=== PATIENT | male | born 1940 | race Caucasian/White ===

== ENCOUNTER 2018-11-16 13:03 | Emergency (ER) | payer MEDICARE, BC ==
[~2018-11-16 13:03] MED LIST: Iopamidol 370 76% 100 ML VIAL ONE
[2018-11-16] MEDS ORDERED: Sodium Chloride 0.9% 1,000 ML ONE ×3 (13:39→16:16)
[2018-11-16] MEDS ORDERED: Ondansetron PF 4 MG/2 ML Vial ONE (13:39)
[2018-11-16 14:21] LABS: #Basophils 0.1 thou/uL (0.0-0.2); #Lymphocytes 0.6 thou/uL (1.20-3.40); #Monocytes 1.1 thou/uL (0.11-0.59); #Neutrophils 12.2 thou/uL (1.40-6.50); %Basophils 0.5 % (0.0-1.0); %Lymphocytes 4.1 % (21.0-51.0); %Monocytes 7.8 % (0.0-10.0); %Neutrophils 87.6 % (42.0-75.0); Hemoglobin 15.6 g/dL (14.0-18.0); Mean Corpuscular HGB CONC 32.1 g/dL (32.0-36.0); Mean Corpuscular Hemoglobin 29.2 pg (27.0-31.0); Mean Corpuscular Volume 91.1 fL (78.0-98.0); Mean Platelet Volume 6.6 fL (7.4-10.4); Platelet Count 149 thou/uL (130-400); RBC Distribution Width 12.7 % (11.5-14.5); Red Blood Cell (RBC) Count 5.33 mill/uL (4.70-6.10); White Blood Cell (WBC) Count 13.9 thou/uL (4.8-10.8)
[2018-11-16 14:31] LABS: ALT (SGPT) 64 U/L (8-55); AST (SGOT) 290 U/L (5-34); Alkaline Phosphatase 95 U/L (40-150); Anion Gap 18 mmol/L (10-20); BUN (Urea Nitrogen) 17 mg/dL (8.4-25.7); Calc. Creatinine Clearance 0 mL/min (70-130); Calcium 9.6 mg/dL (7.8-10.44); Carbon Dioxide 21 mmol/L (23-31); Chloride 98 mmol/L (98-107); Estimated GFR-MDRD 71; Globulin 4.2 g/dL (2.4-3.5); Glucose 149 mg/dL (83-110); Protein, Total 8.2 g/dL (5.8-8.1); Sodium 133 mmol/L (136-145)
[2018-11-16 14:32] LABS: Acetaminophen Less than 6.0 mcg/mL (10.0-30.0); Alcohol Less than 10 mg/dL (Less than 10); Salicylate Less than 8.0 mg/dL (15.0-30.0)
[2018-11-16 14:48] LABS: Bilirubin Small (Negative); Blood, Urine Large (Negative); Clarity Clear (Clear); Glucose, Urine (Dipstick) Negative (Negative); Leukocyte Negative (Negative); Nitrite Negative (Negative); Protein, Urine (Dipstick) > or equal to 300 mg/dL (Neg-Trace); Urobilinogen 0.2 mg/dL (0.2-1.0)
--- NOTE | 2018-11-16 15:03 | RAD ---
PORTABLE CHEST: DATE: 11/16/2018. PROVIDED CLINICAL HISTORY: Vomiting. FINDINGS: Comparison 12/04/2006. The cardiac silhouette appears prominent which may be at least partially on th e basis of portable technique. Prominence of the pulmonary vasculature and pulmonary interstitium. Obscuration of the left heart margin and left hemidiaphragm. No evidence for pneumothorax. IMPRESSION: 1. Prominence of the pulmonary vasculature and pulmonary interstitium suggests congestive failure. 2. Obscuration of the left heart margin and left hemidiaphragm suggests pleural and/or parenchymal o pacity at the left lung base. POS: [facility]
[2018-11-16 15:07] LABS: Amphetamine Not Detected (NotDetected); Barbiturates Screen Not Detected (NotDetected); Benzodiazepine Screen Not Detected (NotDetected); Cocaine Metabolite Screen Not Detected (NotDetected); Medtox Control Line Valid? VALID (VALID); Methadone Not Detected (NotDetected); Methamphetamine Not Detected (NotDetected); Opiate Screen Not Detected (NotDetected); Oxycodone Screen Not Detected (NotDetected); Phencyclidine (PCP) Not Detected (NotDetected); THC/Cannabinoid Screen Not Detected (NotDetected); Tricyclic Screen Not Detected (NotDetected)
[2018-11-16 15:08] LABS: Specific Gravity, Urine 1.027 (1.002-1.036)
[2018-11-16 15:10] LABS: Bacteria/HPF Rare-Few HPF (None Seen); Crystals/HPF 1+ AMORPH URATES HPF (Negative); Squamous Epithelial 0-3 HPF (0-3); WBC/HPF 0-3 HPF (0-3)
--- NOTE | 2018-11-16 15:14 | CT ---
Exam: CT abdomen and pelvis with IV contrast HISTORY: Vomiting FINDINGS: There is patchy parenchymal opacity present at the left lung base. There is a mild hiatal hernia. The liver, spleen, pancreas, kidneys and adrenal glands demonstrate an unremarkable CT appearance. There is a right inguinal hernia containing nondilated distal small bowel. There is no evidence for b owel dilatation, inflammatory fat stranding, free fluid or free air. Vascular calcifications are noted involving the abdominal aorta and its branches. The osseous structu res demonstrate degenerative changes without concerning osteoblastic or osteolytic lesion. IMPRESSION: 1. Left lower lobe airspace disease, compatible with pneumonia in the appropriate clinical context. A spiration could also be considered. 2. Small bowel containing right inguinal hernia without evidence for resultant bowel obstruction.
[2018-11-16] MEDS ORDERED: cefTRIAXone\\ROCEPHIN 1 GM VIAL ONE (15:27)
[2018-11-16] MEDS ORDERED: Acetaminophen 500 MG TAB ONE (16:03)
[2018-11-16] MEDS ORDERED: Acetaminophen 325 MG Suppository ONE (16:06)
[2018-11-16] MEDS ORDERED: Acetaminophen 650 MG Suppository ONE (16:06)
== END 2018-11-16 16:40 | disposition short-term general hospital (02) ==
LOC: NAV ERS 13:03
DX: J18.9 Pneumonia, unspecified organism (principal); K40.90 Unilateral inguinal hernia, without obstruction or gangrene, not specified as recurrent; K92.2 Gastrointestinal hemorrhage, unspecified; I25.10 Atherosclerotic heart disease of native coronary artery without angina pectoris; E78.5 Hyperlipidemia, unspecified; I10 Essential (primary) hypertension; Z87.891 Personal history of nicotine dependence
CPT/HCPCS: 36415; 71045; 74177; 80053; 80306; 80307; 81003; 81015; 82271; 82274; 83605; 83880; 84484; 85025; 87040; 87077; 87086; 87149; 87186; 93005; 94760; 96361; 96374; 96375; J0696; J2405; J7050; Q9967

== ENCOUNTER → 2020-05-04 | Emergency (ER) | payer MEDICARE, BC ==
[~2020-05-04] MED LIST changes: +Azithromycin 500 MG VIAL ONE; -Iopamidol 370 76% 100 ML VIAL ONE; +NS 0.9% w/ 20 MEQ KCL 1,000 ML ONE; +Sodium Chloride 0.9% 1,000 ML ONE; +Sodium Chloride 0.9% 100 ML ONE; +Sodium Chloride 0.9% 250 ML 250 ML ONE; +cefTRIAXone\\ROCEPHIN 1 GM VIAL ONE
[2020-05-04 17:37] LABS: #Basophils 0.1 thou/uL (0.0-0.2); #Eosinphils 0.3 thou/uL (0.0-0.7); #Lymphocytes 1.1 thou/uL (1.20-3.40); #Monocytes 1.3 thou/uL (0.11-0.59); #Neutrophils 11.5 thou/uL (1.40-6.50); %Basophils 0.4 % (0.0-1.0); %Lymphocytes 7.9 % (21.0-51.0); %Monocytes 9.4 % (0.0-10.0); %Neutrophils 80.4 % (42.0-75.0); Hemoglobin 13.7 g/dL (14.0-18.0); Mean Corpuscular HGB CONC 31.8 g/dL (32.0-36.0); Mean Corpuscular Volume 94.3 fL (78.0-98.0); Mean Platelet Volume 6.7 fL (7.4-10.4); Platelet Count 177 thou/uL (130-400); RBC Distribution Width 12.4 % (11.5-14.5); Red Blood Cell (RBC) Count 4.58 mill/uL (4.70-6.10); White Blood Cell (WBC) Count 14.3 thou/uL (4.8-10.8)
[2020-05-04 18:01] LABS: ALT (SGPT) 20 U/L (8-55); AST (SGOT) 17 U/L (5-34); Albumin 3.6 g/dL (3.4-4.8); Alkaline Phosphatase 93 U/L (40-110); Anion Gap 13 mmol/L (10-20); BUN (Urea Nitrogen) 11 mg/dL (8.4-25.7); Calc. Creatinine Clearance 0 mL/min (70-130); Calcium 8.8 mg/dL (7.8-10.44); Carbon Dioxide 30 mmol/L (23-31); Chloride 97 mmol/L (98-107); Estimated GFR-MDRD 82; Globulin 3.7 g/dL (2.4-3.5); Glucose 95 mg/dL (83-110); Protein, Total 7.3 g/dL (5.8-8.1); Sodium 137 mmol/L (136-145)
--- NOTE | 2020-05-04 18:06 | RAD ---
RADIOGRAPH CHEST 1 VIEW: DATE: 05/04/2020 TIME: 5:47 PM HISTORY: 80-year-old male with cough and dyspnea COMPARISON: 11/18/2018 FINDINGS: Again demonstrated are infiltrates involving the lateral aspects of the left mid and lower lung zones encroaching upon lateral upper lung zone, and at the right base. Allowing for positional differences, the infiltrates appear similar to that of the prior study. Sternotomy wires are again no radha. Complete silhouetting of left heart shadow. No pneumothorax. Overall similar appearance to prior study. IMPRESSION: Infiltrates involving bilateral lung bases and lateral aspects of left mid and upper lung zones appea r similar to those of the prior study last year. These could either represent chronic infiltrates or recurrent acute infiltrates. The former is slightly favored.
[2020-05-04 18:17] LABS: Potassium 2.9 mmol/L (3.5-5.1)
[2020-05-04 18:22] LABS: Bilirubin Small (Negative); Blood, Urine Trace (Negative); Clarity Clear (Clear); Glucose, Urine (Dipstick) 250 mg/dL (Negative); Ketone, Urine Negative (Negative); Leukocyte Negative (Negative); Nitrite Negative (Negative); Protein, Urine (Dipstick) 30 mg/dL (Neg-Trace); Specific Gravity, Urine 1.025 (1.005-1.030); Urobilinogen > or = 8.0 mg/dL (Less than 2); pH, Urine 6.5 (5.0-9.0)
[2020-05-04 18:26] LABS: Bacteria/HPF None Seen HPF (None Seen); Squamous Epithelial 0-3 HPF (0-3); WBC/HPF 0-3 HPF (0-3)
== END ==
LOC: NAV ERS 16:58
DX: A41.9 Sepsis, unspecified organism (principal); J18.9 Pneumonia, unspecified organism; R65.20 Severe sepsis without septic shock; E87.6 Hypokalemia; D72.829 Elevated white blood cell count, unspecified; M79.89 Other specified soft tissue disorders; I10 Essential (primary) hypertension; E78.5 Hyperlipidemia, unspecified; Z87.891 Personal history of nicotine dependence
CPT/HCPCS: 36415; 71045; 80053; 81003; 81015; 83605; 83880; 84484; 85025; 85379; 87040; 87149; 93005; 94760; 96365; 96367; 96368; J0456; J0696; J3480; J3490; J7050